=== PATIENT | female | born 1980 | race Caucasian/White ===

== ENCOUNTER → 2020-09-08 14:43 | Outpatient (CLI) | payer BC, SELFPAY ==
--- NOTE | ~2020-09-08 | US_ITS ---
US thyroid INDICATION: Amenorrhea TECHNIQUE: Real-time sonographic images of the thyroid gland were obtained. COMPARISON: No prior studies for comparison. FINDINGS: The right thyroid lobe measures 4.5 x 2.5 x 2 cm. The left thyroid lobe measures 4.3 x 2.4 x 1.5 cm. There is a 7 mm solid hyperechoic wider than tall smooth noncalcified mass in the right lo be, TR 3. Thyroid echotexture is otherwise heterogeneous. No other discrete masses. IMPRESSION: 1. Right thyroid mass measuring 7 mm, TR 3, likely benign. Reviewed, dictated and finalized at location B.
== END ==
PROVIDERS: PCP Family Medicine; Visit Provider Family Medicine
DX: N91.2 Amenorrhea, unspecified (principal)
CPT/HCPCS: 76536

== ENCOUNTER 2021-03-05 18:02 | Emergency (ER) | payer BC, SELFPAY ==
--- NOTE | ~2021-03-05 | XR_ITS ---
XR elbow RT 2V DATE: 03/05/2021 18:54 INDICATION: Fall. Pain and limited range of motion of the elbow TECHNIQUE: 4 views COMPARISON: None FINDINGS: There is comminuted fracture of the medial and lateral condyles of the distal humerus with associated hemarthrosis. The proximal radius including radial head and neck and the proximal ulna appear likely intact on this limited examination with some optimal nonstandard positioning. IMPRESSION: Comminuted distal humeral fracture involving medial and lateral condyles, with hemarthros is Reviewed, dictated and finalized at location A. IMPRESSION: Comminuted distal humeral fracture involving medial and lateral con dyles, with hemarthrosis
--- NOTE | ~2021-03-05 | XR_ITS ---
XR knee RT 3V DATE: 03/05/2021 18:59 INDICATION: Fall. Right knee injury, pain TECHNIQUE: 3 views including crosstable lateral COMPARISON: None FINDINGS: No fracture or dislocation or joint effusion is detected. No periosteal reaction or bone de struction. No radiopaque intra-articular loose body or chondrocalcinosis. IMPRESSION: No significant abnormality Reviewed, dictated and finalized at location A. IMPRESSION: No significant abnormality
[2021-03-05 18:09] VITALS: BP 146/97; PULSE 95; RESP 18; TEMP 36.6; O2SAT 100
--- NOTE | 2021-03-05 19:40 | ED.UPPEXIN ---
HPI - Extremity Injury (Upper) General Chief Complaint: Extremity Injury, Upper Stated Complaint: right arm injury Time Seen by Provider: 03/05/21 18:23 Source: patient Mode of arrival: ambulatory Limitations: no limitations History of Present Illness HPI narrative: Patient is a 40 year old female who presents complaining of right arm pain. She reports diving for volleyball and falling this afternoon. She also reports right knee pain. She denies taking over the counter medications prior to arrival. She denies all other complaints. Patient has no significant medical history. Related Data Allergies Allergy/AdvReac Type Severity Reaction Status Date / Time morphine AdvReac Unknown anger Verified 03/05/21 18:17 Review of Systems Review of Systems: Narrative: CONSTITUTIONAL: Denies fever, chills, or sweats. EYES: Denies visual changes, redness, or discharge. ENT: Denies rhinorrhea, congestion, sore throat, or otalgia. CARDIOVASCULAR: Denies chest pain, palpitations, or edema. RESPIRATORY: Denies cough or dyspnea. GASTROINTESTINAL: Denies abdominal pain, nausea, vomiting, or diarrhea. GENITOURINARY: Denies dysuria or hematuria. SKIN: Denies rash or itching. MUSCULOSKELETAL: Right elbow pain NEUROLOGIC: Denies headache, numbness, dizziness, or weakness. PSYCHIATRIC: Denies anxiety or depression. [facility] Past Medical History Medical History Hypothyroidism Ruptured ectopic Sciatica Family History Family History Mother Family history of osteoporosis Family history of diabetes mellitus in first degree relative Father Depression Hypertension Other Diabetes mellitus Social History Social History (Updated 03/05/21 @ 19:43 by LEEANNE Saini) Smoking status: Never smoker Alcohol intake: current Alcohol use details: occasional Substance use: never Living arrangements: with family Comments At the time of signature, I have reviewed and agree with nursing past medical, surgical, social, and family history unless otherwise noted. Please see nursing chart for further information. There is no relevant family history pertinent to the presenting complaint. Exam Narrative: Exam Narrative: GENERAL: Well-appearing, well-nourished, and in no acute distress. HEAD: Normocephalic, atraumatic. EYES: EOMI. No redness or drainage. Conjunctiva are normal. ENT: Mucous membranes pink and moist. CHEST: No respiratory distress. HEART: Regular rate and rhythm. No murmur appreciated. Normal peripheral pulses. EXTREMITIES: Edema to right elbow, distal sensation intact, no gross deformity SKIN: Warm, dry, no rash. NEURO: No focal deficits. Alert and oriented x3. Gait steady. PSYCH: Normal affect. No signs of depression or anxiety. Course Reevaluation(s) Reevaluation #1: Splint in place, patient requesting pain medication prior to transport. EMS arrives and patient to be transferred to [facility]. Vital Signs Vital signs: Vital Signs Temperature 36.6 C 03/05/21 18:09 Pulse Rate 95 03/05/21 18:09 Respiratory Rate 18 03/05/21 18:09 Blood Pressure 146/97 H 03/05/21 18:09 Pulse Oximetry 100 03/05/21 18:09 Temperature 36.6 C 03/05/21 18:09 Pulse Rate 107 H 03/05/21 20:56 Respiratory Rate 16 03/05/21 20:56 Blood Pressure 144/88 H 03/05/21 20:56 Pulse Oximetry 98 03/05/21 20:56 Reviewed-patient is informed that they may have pre-hypertension or hypertension based on a blood pressure reading. I recommend the patient call the primary care provider listed on their discharge instructions or a physician of their choice this week to arrange follow-up for further evaluation of possible pre-hypertension or hypertension. Transfer Transfered to: [facility] Transportation: BLS Transfer rationale: Higher Level of Care Accepting physician: Dr. Gonsalez Procedures Orthopedic Sp
[2021-03-05 19:55] VITALS: BP 138/84; PULSE 98; RESP 18; O2SAT 97
[2021-03-05] MEDS: HYDROmorphone HCL INJ (*CRX) 1 MG/ML SYR IV PUSH ×2 (20:07→21:18)
[2021-03-05 20:09] LABS: Basophils Absolute Auto 0.1 K/mm3 (0.0-0.1); Basophils Percent Auto 0.4 % (0.2-1.2); Eosinophils Absolute Auto 0.1 K/mm3 (0-0.3); Eosinophils Percent Auto 0.4 % (0-4.4); Hematocrit 37.7 % (37.0-47.0); Hemoglobin 12.6 g/dL (12.0-15.0); Immature Granulocyte Absolute 0.05 K/mm3 (0.00-0.031); Immature Granulocyte Percent A 0.4 % (0-0.5); Lymphocytes Absolute Auto 1.72 K/mm3 (0.9-3.2); Lymphocytes Percent Auto 12.6 % (18.3-44.2); Mean Corpuscular HGB Conc 33.4 g/dl (32-36); Mean Corpuscular Volume 86.7 fl (80-100); Mean Platelet Volume 10.5 fl (7.4-10.4); Monocytes Absolute Auto 0.9 K/mm3 (0.1-0.6); Monocytes Percent Auto 6.5 % (2.6-8.5); Neutrophils Absolute Auto 10.9 K/mm3 (1.3-6.7); Neutrophils Percent Auto 79.7 % (45.5-73.1); Platelet Count Result 266 k/mm3 (150-375); Red Blood Count 4.35 M/mm3 (4.2-5.4); Red Cell Distribution Width 13.2 % (11.5-14.5); White Blood Count 13.7 K/mm3 (4.5-10.0)
[2021-03-05 20:20] LABS: Alanine Aminotransferase 36 U/L (4-35); Albumin Level 4.5 g/dL (3.5-5.1); Alkaline Phosphatase 107 U/L (38-126); Anion Gap 6 mmol/L (8-16); Aspartate Amino Transferase 37 U/L (14-36); Bilirubin,Total 0.2 mg/dL (0.2-1.3); Blood Urea Nitrogen 16 mg/dL (7-17); Calcium 9.3 mg/dL (8.4-10.2); Carbon Dioxide 28 mmol/L (22-30); Chloride 106 mmol/L (98-107); Estimated CRCL calculation 91 ml/min; Estimated Glomerular Filt Rate > 60; Glucose 125 mg/dL (65-105); Potassium 4.2 mmol/L (3.4-5.0); Sodium 140 mmol/L (137-145)
--- NOTE | 2021-03-05 20:37 | PC.NURSE ---
Called Mouna at 2018 for BLS transport to [facility]..eta [id number]. Also called [facility], [facility] and [facility] and all declined.
[2021-03-05 20:56] VITALS: BP 144/88; PULSE 107; RESP 16; O2SAT 98
== END 2021-03-05 21:25 | disposition short-term general hospital (02) ==
PROVIDERS: Emergency Provider Nurse Practitioner; PCP Family Medicine
DX: S42.451A Displaced fracture of lateral condyle of right humerus, initial encounter for closed fracture (principal); S42.461A Displaced fracture of medial condyle of right humerus, initial encounter for closed fracture; W18.39XA Other fall on same level, initial encounter; Y93.68 Activity, volleyball (beach) (court); E03.9 Hypothyroidism, unspecified; R03.0 Elevated blood-pressure reading, without diagnosis of hypertension
CPT/HCPCS: 29105; 36415; 73070; 73562; 80053; 85025; 96374; 96376; 99284; 99285; A4565; J1170

== ENCOUNTER → 2023-06-17 12:54 | Outpatient (CLI) | payer BC, SELFPAY ==
--- NOTE | ~2023-06-17 | MM_ITS ---
EXAMINATION: MM screening henny BI w мария HISTORY: Screening mammogram. Baseline examination. TECHNIQUE: Craniocaudal and mediolateral oblique 3-D tomosynthesis images were obtained and synthetic 2-D images were generated. CAD analysis was submitted and interpreted. COMPARISON: No prior mammogram is available for comparison at this institution. BREAST PARENCHYMAL COMPOSITION: There are scattered areas of fibroglandular density. FINDINGS: There is an irregular up to approximately 1 cm asymmetric opacity in the posterior central right breast. Diagnostic right mammogram and right breast ultrasound examination are recommended. Otherwise no suspicious mass, architectural distortion, malignant calcification, skin thickening or r etraction of either breast is detected. IMPRESSION: 1. Asymmetric irregular up to 1 cm mass in the posterior lower central right breast 2. Diagnostic right mammogram and right breast ultrasound examination are recommended. BI-RADS Category 0: Incomplete: Needs additional imaging evaluation. Reviewed, dictated and finalized at location A. IMPRESSION: 1. Asymmetric irregular up to 1 cm mass in the posterior lower central right br east 2. Diagnostic right mammogram and right breast ultrasound examination are recom mended. BI-RADS Category 0: Incomplete: Needs additional imaging evaluation.
== END ==
PROVIDERS: PCP Physician Assistant; Visit Provider Physician Assistant
DX: Z12.31 Encounter for screening mammogram for malignant neoplasm of breast (principal); R92.8 Other abnormal and inconclusive findings on diagnostic imaging of breast
CPT/HCPCS: 77063; 77067

== ENCOUNTER → 2023-06-18 10:03 | Outpatient (CLI) | payer BC, SELFPAY ==
--- NOTE | ~2023-06-18 | XR_ITS ---
EXAMINATION: XR chest 2V DATE: 06/18/2023 10:14 INDICATION: Left chest pain. TECHNIQUE: Frontal and lateral views of the chest were obtained on 3 radiographs. COMPARISON: Chest single view 03/17/2018, chest CT 03/17/2018 FINDINGS: There is mild atelectasis versus scarring in left lower lung zone. No pleural effusion or p neumothorax. The heart size is normal. IMPRESSION: 1. Mild atelectasis versus scarring in left lower lung zone. Reviewed, dictated and finalized at location A.
== END ==
PROVIDERS: PCP Family Medicine; Visit Provider Physician Assistant
DX: R07.89 Other chest pain (principal); R91.8 Other nonspecific abnormal finding of lung field
CPT/HCPCS: 71046

== ENCOUNTER 2023-06-18 10:16 | Outpatient (CLI) | payer BC, SELFPAY ==
[2023-06-18 12:03] LABS: Kit Draw Collected
== END 2023-06-18 10:17 | disposition home or self-care (01) ==
LOC: ANHGOSHLAB 10:22
PROVIDERS: PCP Family Medicine; Visit Provider Physician Assistant
DX: E04.1 Nontoxic single thyroid nodule (principal); R53.83 Other fatigue; E66.01 Morbid (severe) obesity due to excess calories
CPT/HCPCS: 36415

== ENCOUNTER → 2023-09-17 08:13 | Outpatient (CLI) | payer BC, SELFPAY ==
--- NOTE | ~2023-09-17 | MMUS_ITS ---
EXAMINATION: MM diagnostic henny RT w мария, US breast RT limited HISTORY: Possible right breast mass on screening mammogram TECHNIQUE: Additional 3-D tomosynthesis images of the right breast were performed and synthetic 2-D i mages were generated. CAD analysis was submitted and interpreted. High resolution limited right breas t ultrasound was performed. COMPARISON: 06/17/2023 BREAST PARENCHYMAL COMPOSITION: There are scattered areas of fibroglandular density. FINDINGS: MAMMOGRAPHIC FINDINGS: There is an approximately 8 mm x 6 mm irregular high density mass in the far posterior third of the b reast at the 6:00, 10 cm from the nipple. ULTRASOUND: There is a 5 mm x 3 mm irregular, not parallel, hypoechoic mass with minimal posterior acoustic shado wing and no definite internal vascularity at the 6:00 location, 6 cm from the nipple IMPRESSION: 1. Indeterminate right breast mass. 2. Ultrasound-guided biopsy is recommended. BI-RADS category 4, suspicious findings. Reviewed, dictated and finalized at location A. IMPRESSION: 1. Indeterminate right breast mass. 2. Ultrasound-guided biopsy is recommended. BI-RADS category 4, suspicious findings.
== END ==
PROVIDERS: PCP Physician Assistant; Visit Provider Physician Assistant
DX: R92.8 Other abnormal and inconclusive findings on diagnostic imaging of breast (principal)
CPT/HCPCS: 76642; 77061; 77065; G0279

== ENCOUNTER 2023-10-01 08:51 | Outpatient (CLI) | payer BC, SELFPAY ==
--- NOTE | ~2023-10-01 | MMUS_ITS ---
EXAMINATION: US breast biopsy RT w image, MM post biopsy invasive RT DATE: 10/01/2023 10:55 (accession [id number]), 10/01/2023 10:48 (accession [id number]) INDICATION: Indeterminate mass at the 6:00 location of the right breast. Ultrasound-guided core biops y is requested to evaluate for malignancy. TECHNIQUE AND FINDINGS: The risks and potential benefits of the procedure were discussed with the patient including bleeding and infection. A time out was performed. The skin of the right breast was prepared and draped in usua l sterile fashion. 1% lidocaine was used for superficial anesthesia. 1% lidocaine with epinephrine wa s used for deep anesthesia. A vacuum-assisted biopsy needle was advanced through to the outer edge of the region of interest from a lateral approach utilizing sonographic guidance. A total of three tissue core samples were obtaine d through the lesion. A tissue marker clip was then placed at the biopsy site. Hemostasis was achieve d. A sterile bandage was applied. The patient tolerated procedure well and there was no evidence of immediate complication. The patient was given verbal instructions to return to the Emergency Department in the event of severe breast pa in or rapid breast enlargement. A two view right breast mammogram was obtained to document tissue mar ker clip placement. IMPRESSION: 1. Successful ultrasound-guided vacuum-assisted biopsy of right breast mass with tissue marker placem ent. Reviewed, dictated and finalized at location A. [employer] IMPRESSION: 1. Successful ultrasound-guided vacuum-assisted biopsy of right breast mass wit h tissue marker placement.
== END 2023-10-01 08:52 | disposition home or self-care (01) ==
PROVIDERS: PCP Physician Assistant; Visit Provider Family Medicine
DX: N60.11 Diffuse cystic mastopathy of right breast (principal)
CPT/HCPCS: 19083; 88305; A4648